=== PATIENT | male | born 2000 | race Caucasian/White ===

== ENCOUNTER 2019-06-24 19:22 | Emergency (ER) | payer OTHER ==
[~2019-06-24] VITALS: Ht 180.3 cm; Wt 81.6 kg
--- NOTE | 2019-06-24 20:06 | NUR ---
Akanksha barrera in [facility] - 06/24/19 at 2151 by CYNTHIA PT SEEN BY
--- NOTE | 2019-06-24 20:15 | NUR ---
DR. MATTSON AT BEDSIDE FOR MSE.
[2019-06-24] MEDS ORDERED: LIDOCAINE HCL 1% 20 ML VIAL IJ ONE (21:15)
[2019-06-24] MEDS ORDERED: NEOMY/BACITRA/POLYMYXIN B OINT UD PACKET TP ONE (21:42)
--- NOTE | 2019-06-24 21:46 | NUR ---
Patient discharged to home in stable condition. Written and verbal after care instructions given. Patient verbalizes understanding of instructions. Stressed follow up or return to ER for worsening s/s. PT gait steady.
[2019-06-24 21:54] VITALS: BP 130/60
== END 2019-06-24 21:46 | disposition home or self-care (01) ==
LOC: ER 19:25
PROC: 0HQMXZZ Repair Right Foot Skin, External Approach (ICD-10-PCS; principal; 2019-06-24)
DX: S91.311A Laceration without foreign body, right foot, initial encounter (principal); W25.XXXA Contact with sharp glass, initial encounter; Y93.11 Activity, swimming; Y92.016 Swimming-pool in single-family (private) house or garden as the place of occurrence of the external cause
CPT/HCPCS: 99283; 12001; 73630; J3490; A4217; A4663